=== PATIENT | male | born 1980 | race Caucasian/White ===

== ENCOUNTER 2021-12-31 10:03 | Emergency (ER) | payer SELFPAY ==
[2021-12-31] MEDS ORDERED: BACTRIM DS TAB1 EACH PO (12:03)
[2021-12-31] MEDS ORDERED: NORCO 5-325 TA1 EACH PO (12:03)
== END 2021-12-31 12:24 | disposition home or self-care (01) ==
LOC: FER 10:03
DX: L02.512 Cutaneous abscess of left hand (principal); F17.210 Nicotine dependence, cigarettes, uncomplicated; Z28.310 Unvaccinated for COVID-19
CPT/HCPCS: 73140